=== PATIENT | female | born 1975 | race Hispanic/Latino ===

== ENCOUNTER → 2016-12-08 | Outpatient (CLI) | payer OTHER ==
--- NOTE | 2016-12-08 13:35 | Diagnostic Imaging Report ---
INDICATION: Evaluate size and dates. TECHNIQUE: Multiple real-time grayscale images were obtained over the gravid uterus. COMPARISON: None FINDINGS: Single live intrauterine at 17 weeks 4 days by today's sonographic measurements. The cervix is closed and measures 7.6 cm. Placenta previa is noted at this time. Placenta is located anteriorly. Normal amniotic fluid index. heart rate measures 143 beats per minute. No other acute abnormality identified. presentation varied throughout the exam. Biometrical measurements are as follows: Biparietal 3.8 cm, age 17 weeks 5 days. Head circumference 14.4 cm, age 17 weeks 5 days. Abdominal circumference 11.5 cm, age 17 weeks 2 days. Femur length 2.5 cm, age 17 weeks 4 days. Sonographic estimate age: 17 weeks 4 days. Sonographic estimated date of delivery: 05/14/2017. Estimated Weight: 193 gm (+/- 28 gm). LMP percentile: 60%. heart rate: 143 beats per minute. number: 1 of 1. IMPRESSION: 1. Single live intrauterine at 17 weeks 4 days by sonographic measurements. 2. Placenta previa. 3. Recommend short-term sonographic followup for anatomical survey. Dictated by: Dictated on workstation # [id number]
== END ==
LOC: RAD 12:11
PROVIDERS: ATTEND Family Medicine
DX: Z36 Encounter for antenatal screening of mother (principal); Z3A.17 17 weeks gestation of pregnancy
CPT/HCPCS: 76805

== ENCOUNTER → 2017-01-01 | Outpatient (CLI) | payer OTHER ==
--- NOTE | 2017-01-01 13:26 | Diagnostic Imaging Report ---
INDICATION: survey. TECHNIQUE: Multiple real-time grayscale images were obtained over the gravid uterus. COMPARISON: None FINDINGS: There is a single living intrauterine in a cephalic presentation. The placenta is anterior. There is no previa. There is normal volume of amniotic fluid. The heart rate is 140 beats per minute. The anatomical survey is unremarkable. Cord insertion is not well seen. The biometry correlates with a gestational age of 21 weeks 3 days. IMPRESSION: 1. Single living intrauterine with sonographically estimated gestational age of 21 weeks 3 days and estimated date of confinement of May 11, 2017. 2. Cord insertion is not well seen. Biometrical measurements are as follows: Biparietal 5.0 cm, age 21 weeks 2 days. Head circumference 19.2 cm, age 21 weeks 4 days. Abdominal circumference 16.0 cm, age 21 weeks 1 days. Femur length 3.7 cm, age 21 weeks 5 days. Sonographic estimate age: 21 weeks 3 days. Sonographic estimated date of delivery: 05/11/17. Estimated Weight: 419 gm (+/- 61 gm). LMP percentile: 65%. heart rate: 147 beats per minute. number: 1 of 1. Dictated by: Dictated on workstation # [id number]
== END ==
LOC: RAD 12:27
PROVIDERS: ATTEND Family Medicine
DX: Z36 Encounter for antenatal screening of mother (principal); Z3A.21 21 weeks gestation of pregnancy
CPT/HCPCS: 76805

== ENCOUNTER → 2017-03-06 | Outpatient (CLI) | payer OTHER ==
[~2017-03-06] MED LIST: IBUP-1773 PO; PREN-37 PO
== END ==
LOC: LAB 08:09
PROVIDERS: ATTEND Family Medicine
DX: R73.02 Impaired glucose tolerance (oral) (principal)
CPT/HCPCS: 36415; 82951; 82952; 82962

== ENCOUNTER 2017-05-12 15:01 | Inpatient (IN) | payer OTHER ==
[2017-05-12] VITALS (19 sets, daily range): BP systolic 132–168; BP diastolic 60–101
[~2017-05-12] VITALS: Ht 160 cm; Wt 88.9 kg
[2017-05-12] MEDS ORDERED: PREN-37 PO (15:41)
[2017-05-12] MEDS ORDERED: D5 LR IV SOLUTION 1,000 ML IV SCH (15:49)
[2017-05-12] MEDS ORDERED: AMPICILLIN 2000 MG INJECTION (IM/IV) ONE (16:04)
[2017-05-12] MEDS ORDERED: NS (IVPB) 50 ML ONE (16:04)
[2017-05-12] MEDS ORDERED: AMPICILLIN INJECTION 2,000 MG in NS (IVPB) 50 ML IV ONE (16:15)
[2017-05-12 16:25] LABS: BASOPHILS % (AUTO) 0 % (0-10); EOSINOPHILS # (AUTO) 0.1 10^3/uL (0.0-0.3); EOSINOPHILS % (AUTO) 1 % (0-10); LYMPHOCYTES # (AUTO) 2.3 X 10^3 (1.0-4.0); LYMPHOCYTES % (AUTO) 23 % (12-44); MEAN CORPUSCULAR HEMOGLOBIN 30 PG (25-34); MEAN CORPUSCULAR HGB CONC 34 G/DL (32-36); MEAN CORPUSCULAR VOLUME 87 FL (80-99); MEAN PLATELET VOLUME 11.6 FL (7.4-10.4); MONOCYTES # (AUTO) 0.6 X 10^3 (0.0-1.0); MONOCYTES % (AUTO) 6 % (0-12); NEUTROPHILS # (AUTO) 7.2 X 10^3 (1.8-7.8); NEUTROPHILS % (AUTO) 70 % (42-75); PLATELET COUNT 112 10^3/uL (130-400); RED CELL DISTRIBUTION WIDTH 13.3 % (10.0-14.5); WHITE BLOOD COUNT 10.2 10^3/uL (4.3-11.0)
[2017-05-12] MEDS ORDERED: OXYTOCIN/NORMAL SALINE 500 ML IV ONE (16:37)
[2017-05-12] MEDS ORDERED: BUTORPHANOL INJ 2 MG/ML (STADOL) VIAL IV PRN (16:45)
--- NOTE | 2017-05-12 16:57 | History & Physical-OB ---
OB - Chief Complaint & HPI Date/Time Date of Admission: Date of Admission: May 12, 2017 at 15:47 Time Seen by Provider: 16:50 Chief Complaint/History OB-Reason for Admission/Chief: Onset of Labor Hx : 7 Hx Para: 4 Expected Date of Delivery: May 17, 2017 Gestational Age in Weeks: 39 Gestational Age in Days: 2 Admission Nurse Assessment Rev: Yes History of Labs GBS positive at 36 weeks gestation Allergies and Home Medications Allergies Coded Allergies: No Known Drug Allergies (Unverified , 05/12/17) Home Medications Vit/Iron Fumarate/FA 1 Each Tablet, 1 EACH PO DAILY, (Reported) OB - History Hx of Present Care: Yes Ultrasounds: Normal mid trimester US Obstetrical Complications: None Obstetrical History Hx : 7 Hx Para: 4 Hx Total # of Abortions (Spona: 2 Patient Past Medical History No chronic medical problems. Social History/Family History Recent Infectious Disease Expo: No OB - Admission Exam Physical Exam HEENT: Moist Membranes Heart: Rhythm Normal Lungs: Clear Abdomen: Gravid Cervical Dilatation: 4cm (on presentation) Effacement: 75% Station: -3 Membranes: Ruptured Amniotic Fluid: Other (no fluid seen) Heart Rate: 130's Accelerations: Accelerations Present Short Term Variability: Present Attache Variability: Average (6-25) Contractions on Admission: < 5 Minutes Apart Intensity: Moderate Labs Laboratory Tests Test 05/12/17 16:10 Range/Units White Blood Count 10.2 4.3-11.0 10^3/uL Red Blood Count 3.90 L 4.35-5.85 10^6/uL Hemoglobin 11.5 11.5-16.0 G/DL Hematocrit 34 L 35-52 % Mean Corpuscular Volume 87 80-99 FL Mean Corpuscular Hemoglobin 30 25-34 PG Mean Corpuscular Hemoglobin Concent 34 32-36 G/DL Red Cell Distribution Width 13.3 10.0-14.5 % Platelet Count 112 L 130-400 10^3/uL Mean Platelet Volume 11.6 H 7.4-10.4 FL Neutrophils (%) (Auto) 70 42-75 % Lymphocytes (%) (Auto) 23 12-44 % Monocytes (%) (Auto) 6 0-12 % Eosinophils (%) (Auto) 1 0-10 % Basophils (%) (Auto) 0 0-10 % Neutrophils # (Auto) 7.2 1.8-7.8 X 10^3 Lymphocytes # (Auto) 2.3 1.0-4.0 X 10^3 Monocytes # (Auto) 0.6 0.0-1.0 X 10^3 Eosinophils # (Auto) 0.1 0.0-0.3 10^3/uL Basophils # (Auto) 0.0 0.0-0.1 10^3/uL OB - Assessment/Plan/Diagnosis Assessment Assessment: active labor (at 39w2d ) Plan Plan: Expectant Management Other Plan Stadol for pain management 2. Ampicillin protochol for GBS positive status JANETTE PEACOCK MD May 12, 2017 16:57
[2017-05-12] MEDS ORDERED: OXYTOCIN/NORMAL SALINE 500 ML IV SCH (17:28)
[2017-05-12] MEDS ORDERED: MEASLES,MUMPS,RUBELLA 1 EA INJ SQ ONE (17:30)
[2017-05-12] MEDS ORDERED: BENZOCAINE/MENTHOL (DERMOPLAST) 56 ML CAN TP PRN (17:30)
[2017-05-12] MEDS ORDERED: HYDROcodone/APAP 5 MG/325 MG (LORTAB) TAB PO PRN (17:30)
[2017-05-12] MEDS ORDERED: WITCH HAZEL(TUCKS) 40 EA JAR TOP PRN (17:30)
[2017-05-12] MEDS ORDERED: TETANUS,DIPTH,PERTUSS P/F (BOOSTRIX) 0.5 ML VIAL IM ONE (17:30)
--- NOTE | 2017-05-12 17:33 | OB Labor & Delivery Record ---
L&D History Date of Service Date of Service: May 12, 2017 History Expected Date of Delivery: May 17, 2017 Gestational Age in Weeks: 39 Hx : 7 Hx Para: 4 Complications Events: Routine care Operative Indications (Cesarea: N/A-Vaginal Delivery Intrapartal Events: None Other Complications GBS positive and received 1 dose of amp L&D Stage1 Stage One Onset of Labor - Date: May 12, 2017 Onset of Labor - Time: 14:00 Monitors and Tracing Monitor Mode: External Heart Rate: 140 Monitor Accelerations: Uniform Monitor Decelerations: Variable Longterm Variability: Average (6-10) Short Term Variability: Present Presentation: Vertex Signs of Distress by FHT Signs of Distress no Rupture of Membranes Spontaneous Ruture of Membrane: Yes Amniotic Membrane Fluid Desc.: Clear Induction/Anesthesia Medications Stadol x 1 L&D Stage2 Stage Two Stage II Date: May 12, 2017 Stage II Time: 17:07 Monitors and Tracing Monitor Mode: External Heart Rate: 140 Monitor Decelerations: Variable Linseed Oil Temperer Variability: Average (6-10) Short Term Variability: Present Position: Left Occiput Anterior Presentation: Vertex Signs of Distress by FHT Signs of Distress no Cord Descript/Complications Cord Vessel Description: 3 Vessels Delivery Type Infant Delivery Method: Spontaneous Vaginal Episiotomy/Perineal Laceration Laceraction(s)/Extensions: No Condition of Delivery 1 minute Comment: 8 5 minute Comment: 9 Condition of Infant Condition of : Living Exam: No Observed Abnormalities Resuscitation Resuscitation: N/A - Spontaneous Resp L&D Stage3 Stage Three Stage III Date: May 12, 2017 Stage III Time: 17:10 Pictocin Pitocin ml/hr: 125 Placenta Delivery Placenta Delivery: Spontaneous Delivery Summary Summary Estimated blood loss (mL): 150 Condition of Delivery Examined: Cervix Examined Post Hemorrhage: No Intervention Required none JANETTE PEACOCK MD May 12, 2017 17:32
[2017-05-12] MEDS: IBUPROFEN 600 MG (MOTRIN) TAB PO SCH (19:14)
[2017-05-12] MEDS ORDERED: AMPICILLIN INJECTION 1,000 MG in NS (IVPB) 50 ML IV SCH (20:15)
[2017-05-12] MEDS ORDERED: CATHETER FLUSH 10 ML SYR IV SCH ×2 (22:00)
[2017-05-13] VITALS: BP 121/74
[2017-05-13] MEDS: IBUPROFEN 600 MG (MOTRIN) TAB PO SCH ×2 (00:27→14:38)
[2017-05-13 04:00] VITALS: BP 121/77
[2017-05-13 06:19] LABS: BASOPHILS % (AUTO) 0 % (0-10); EOSINOPHILS # (AUTO) 0.1 10^3/uL (0.0-0.3); EOSINOPHILS % (AUTO) 1 % (0-10); LYMPHOCYTES # (AUTO) 3.4 X 10^3 (1.0-4.0); LYMPHOCYTES % (AUTO) 28 % (12-44); MEAN CORPUSCULAR HEMOGLOBIN 29 PG (25-34); MEAN CORPUSCULAR HGB CONC 33 G/DL (32-36); MEAN CORPUSCULAR VOLUME 88 FL (80-99); MEAN PLATELET VOLUME 11.9 FL (7.4-10.4); MONOCYTES # (AUTO) 0.7 X 10^3 (0.0-1.0); MONOCYTES % (AUTO) 5 % (0-12); NEUTROPHILS # (AUTO) 7.9 X 10^3 (1.8-7.8); NEUTROPHILS % (AUTO) 66 % (42-75); PLATELET COUNT 110 10^3/uL (130-400); RED BLOOD COUNT 3.65 10^6/uL (4.35-5.85); RED CELL DISTRIBUTION WIDTH 13.4 % (10.0-14.5)
[2017-05-13] MEDS ORDERED: PRENATAL VITAMIN 1 EA TAB PO SCH (07:00)
[2017-05-13 09:32] VITALS: BP 112/72
[2017-05-13 14:30] VITALS: BP 125/84
--- NOTE | 2017-05-13 16:53 | Discharge Summary ---
Diagnosis/Chief Complaint Date of Admission May 12, 2017 at 15:47 Date of Discharge May 13, 2017 Admission Diagnosis Admission Diagnosis 1. Intrauterine at term 39 weeks Discharge Diagnosis 1. Intrauterine at term 39 weeks Chief Complaint/HPI Chief Complaint/HPI 41-year-old 7 now term 4 female who initially presented to [facility] during the afternoon of May 12h spontaneous rupture of membranes as was uterine contractions. Discharge Summary-OBS Procedures 1 Spontaneous vaginal delivery Discharge Physical Examination Allergies: Coded Allergies: No Known Drug Allergies (Unverified , 05/12/17) Vitals & I&Os Vital Sign - Last 12Hours Date Time Temp Pulse Resp B/P (MAP) Pulse Ox O2 Delivery O2 Flow Rate FiO2 05/13/17 14:30 97.0 95 18 125/84 98 Room Air General Appearance: Alert, No Acute Distress Respiratory: Clear to Auscultation Cardiovascular: Regular Rate Abdominal: Soft (with uterus firm) Hospital Course following admission patient contracted on her own eventually going on to completion at which time she was allowed to push. She did not request epidural. She delivered a term viable male over an intact perineum. had received Apgars of 8 at 1 minute and 9 at 5 minutes. See labor and delivery summary for full details. following delivery, patient underwent routine orders. She had no complications during the remainder of hospital stay. She was ambulatory and without any leg pain. Her hemoglobin the day after delivery was 10.6. She was eager for dismissal during the day of May 13. She was dismissed during the evening of May 13 with follow-up with myself at [facility] in 6 weeks. Labs Laboratory Tests 05/13/17 05:58: White Blood Count 12.0H, Red Blood Count 3.65L, Hemoglobin 10.6L, Hematocrit 32L , Mean Corpuscular Volume 88, Mean Corpuscular Hemoglobin 29, Mean Corpuscular Hemoglobin Concent 33, Red Cell Distribution Width 13.4, Platelet Count 110L, Mean Platelet Volume 11.9H, Neutrophils (%) (Auto) 66, Lymphocytes (%) (Auto) 28 , Monocytes (%) (Auto) 5, Eosinophils (%) (Auto) 1, Basophils (%) (Auto) 0, Neutrophils # (Auto) 7.9H, Lymphocytes # (Auto) 3.4, Monocytes # (Auto) 0.7, Eosinophils # (Auto) 0.1, Basophils # (Auto) 0.0 Discharge Instructions to patient/family Please see electronic discharge instructions given to patient. Discharge Medications Reviewed and agree with Discharge Medication list on patient's Discharge Instruction sheet Clinical Quality Measures DVT/VTE Risk/Contraindication: Risk Factor Score Per Nursin RFS Level Per Nursing on Admit: 3=High JANETTE PEACOCK MD May 13, 2017 16:53
[2017-05-13] MEDS ORDERED: IBUP-1773 PO (16:58)
--- NOTE | 2017-05-13 16:59 | Discharge Inst-Women's Service ---
Discharge Inst-Women's Serv Depart Medication/Instructions New, Converted or Re-Newed RX: Call to Patients Pharmacy Consults/Follow Up Additional Follow Up: Yes (Dr peacock in 6 weeks at [facility]) Activity Activity: Activity as Tolerated Driving Instructions: You May Drive NO SMOKING: NO SMOKING Nothing Inside Vagina: No [place] (for 6 weeks.) Diet Discharge Diet: Regular Diet Return to The Hospital For: as vital Symptoms to Report to : Bleeding Excessive, Pain Increased, Fever Over 101 Degrees F, Urination Difficulty, Vaginal Discharge Foul For Any Problems or Questions: Contact Your Physician JANETTE PEACOCK MD May 13, 2017 16:59
== END 2017-05-13 19:35 | disposition home or self-care (01) | DRG 775 ==
LOC: WSo 15:01 → LDRP 15:02 → WSo 15:47 → LDRP 15:47
PROVIDERS: ADMIT Family Medicine; ATTEND Family Medicine
PROC: 10E0XZZ Delivery of Products of Conception, External Approach (ICD-10-PCS; principal; 2017-05-12)
DX: O99.824 Streptococcus B carrier state complicating childbirth (principal); Z3A.39 39 weeks gestation of pregnancy; Z37.0 Single live birth
CPT/HCPCS: 36415; 85025; 86850; 86900; 86901; 99212